=== PATIENT | female | born 1950 | race African-American/Black ===

== ENCOUNTER 2016-09-24 07:31 | Day surgery (SDC) | payer OTHER, MEDICAID ==
[2016-09-24] MEDS ORDERED: TETRACAINE 0.5% OPHTH 1 DOSE AFFEYE ONE ×2 (08:00→11:00)
[2016-09-24] MEDS ORDERED: VIGAMOX 0.5% OPHTH 1 DOSE AFFEYE ONE ×5 (08:01→11:24)
[2016-09-24] MEDS ORDERED: NS 500 ML IV 500 ML IV ONE (08:11)
[2016-09-24] MEDS ORDERED: PROLENSA OPHTH 1 DOSE AFFEYE ONE (08:12)
[2016-09-24] MEDS ORDERED: ALPHAGAN-P OPHTH 1 DOSE AFFEYE ONE (08:13)
[2016-09-24] MEDS ORDERED: MYDRIACIL OPHTH 1 DOSE AFFEYE ONE ×4 (08:14→08:17)
[2016-09-24] MEDS ORDERED: CYCLOGYL 1% OPHTH 1 DOSE OP ONE ×4 (08:14→08:17)
[2016-09-24] MEDS ORDERED: AK-DILATE 2.5% OPHTH 1 DOSE OP ONE ×4 (08:14→08:17)
[2016-09-24] MEDS ORDERED: BSS OPHTH (PLAIN) 500 ML with VANCOMYCIN HCL 500 MG VIAL 25 MG, ADRENALINE CHL INJ 1 MG IR ONE ×6 (11:00)
[2016-09-24] MEDS ORDERED: DUOVISC IO ONE ×2 (11:12→11:15)
[2016-09-24] MEDS ORDERED: ADRENALINE CHL INJ IJ ONE ×2 (11:12→11:15)
[2016-09-24] MEDS ORDERED: BETADINE OPHTH SOLN 5% EACHEYE ONE (11:12)
[2016-09-24] MEDS ORDERED: XYLOCAINE-MPF 1% IJ ONE ×2 (11:12→11:15)
[2016-09-24 11:58] VITALS: BP 148/79
[2016-09-24] MEDS ORDERED: DIPRIVAN VIAL ONE (15:52)
== END 2016-09-24 11:50 | disposition home or self-care (01) ==
LOC: SURG1 07:31
PROVIDERS: ATTEND Ophthalmology
PROC: 08RJ3JZ Replacement of Right Lens with Synthetic Substitute, Percutaneous Approach (ICD-10-PCS; principal; 2016-09-24 18:30)
PROC: 08DJ3ZZ Extraction of Right Lens, Percutaneous Approach (ICD-10-PCS; principal; 2016-09-24 18:30)
DX: H25.11 Age-related nuclear cataract, right eye (principal); H25.011 Cortical age-related cataract, right eye
CPT/HCPCS: A4222; A4217; J0170; J3370; J3490

== ENCOUNTER 2016-10-15 09:45 | Day surgery (SDC) | payer OTHER, MEDICAID ==
[2016-10-15] MEDS ORDERED: TETRACAINE 0.5% OPHTH 1 DOSE AFFEYE ONE ×3 (09:50→13:09)
[2016-10-15] MEDS ORDERED: VIGAMOX 0.5% OPHTH 1 DOSE AFFEYE ONE ×5 (09:51→13:22)
[2016-10-15] MEDS ORDERED: NS 500 ML IV 500 ML IV ONE (09:54)
[2016-10-15] MEDS ORDERED: PROLENSA OPHTH 1 DOSE AFFEYE ONE (10:02)
[2016-10-15] MEDS ORDERED: ALPHAGAN-P OPHTH 1 DOSE AFFEYE ONE (10:03)
[2016-10-15] MEDS ORDERED: AK-DILATE 2.5% OPHTH 1 DOSE OP ONE ×4 (10:04→10:07)
[2016-10-15] MEDS ORDERED: CYCLOGYL 1% OPHTH 1 DOSE OP ONE ×4 (10:04→10:07)
[2016-10-15] MEDS ORDERED: MYDRIACIL OPHTH 1 DOSE AFFEYE ONE ×4 (10:04→10:07)
[2016-10-15] MEDS ORDERED: BETADINE OPHTH SOLN 5% EACHEYE ONE (13:01)
[2016-10-15] MEDS ORDERED: XYLOCAINE-MPF 1% IJ ONE (13:09)
[2016-10-15] MEDS ORDERED: DUOVISC IO ONE (13:09)
[2016-10-15] MEDS ORDERED: ADRENALINE CHL INJ IJ ONE (13:09)
[2016-10-15] MEDS ORDERED: BSS OPHTH (PLAIN) 500 ML with VANCOMYCIN HCL 500 MG VIAL 25 MG, ADRENALINE CHL INJ 1 MG IR ONE ×6 (13:13)
[2016-10-15] MEDS ORDERED: DIPRIVAN VIAL ONE (14:18)
[2016-10-15] MEDS ORDERED: VERSED ONE (14:18)
[2016-10-15 14:49] VITALS: BP 136/82
== END 2016-10-15 13:45 | disposition home or self-care (01) ==
LOC: SURG1 09:45
PROVIDERS: ATTEND Ophthalmology
PROC: 08DK3ZZ Extraction of Left Lens, Percutaneous Approach (ICD-10-PCS; principal; 2016-10-15 14:30)
PROC: 08RK3JZ Replacement of Left Lens with Synthetic Substitute, Percutaneous Approach (ICD-10-PCS; principal; 2016-10-15 14:30)
DX: H25.12 Age-related nuclear cataract, left eye (principal); H25.012 Cortical age-related cataract, left eye
CPT/HCPCS: A4217; J0170; J2250; J3370; J3490